=== PATIENT | male | born 2000 | race Caucasian/White ===

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

== ENCOUNTER 2021-05-13 13:04 | Emergency (ER) | payer OTHER ==
[~2021-05-13] VITALS: Ht 180.3 cm; Wt 158.8 kg
[2021-05-13] MEDS ORDERED: IBUPROFEN 800 MG TABLET PO ONE (13:30)
[2021-05-13] MEDS ORDERED: IBUPROFEN 800 MG TABLET ONE (13:45)
--- NOTE | 2021-05-13 14:14 | NUR ---
Pt out of ER for CT.
--- NOTE | 2021-05-13 14:25 | NUR ---
Pt back from Ct, states his neck pain is better, awaiting ct result.
[2021-05-13 15:08] VITALS: BP 120/67
== END 2021-05-13 15:09 | disposition home or self-care (01) ==
LOC: ER 13:12
DX: S16.1XXA Strain of muscle, fascia and tendon at neck level, initial encounter (principal); X50.1XXA Overexertion from prolonged static or awkward postures, initial encounter; Y93.89 Activity, other specified; Y92.89 Other specified places as the place of occurrence of the external cause; Y99.8 Other external cause status
CPT/HCPCS: 72125; A4663

== ENCOUNTER 2022-02-12 22:14 | Emergency (ER) | payer OTHER ==
[~2022-02-12] VITALS: Ht 185.4 cm; Wt 127.0 kg
--- NOTE | 2022-02-12 23:51 | NUR ---
Dr. Weiner in [place]. MSE in progress.
[2022-02-13] MEDS ORDERED: OXYC-128 PO (00:01)
--- NOTE | 2022-02-13 00:15 | NUR ---
Patient discharged to home in stable condition. Written and verbal after care instructions given. Patient verbalizes understanding of instructions. Stressed follow up or return to ER for worsening s/s. Patient is A/OX4, NAD noted. Patient is able to walk with steady gait
[2022-02-13 00:22] VITALS: BP 120/81
== END 2022-02-13 00:23 | disposition home or self-care (01) ==
LOC: ER 22:16
DX: J11.1 Influenza due to unidentified influenza virus with other respiratory manifestations (principal); E66.9 Obesity, unspecified; Z68.36 Body mass index [BMI] 36.0-36.9, adult; L83 Acanthosis nigricans
CPT/HCPCS: A4663